=== PATIENT | male | born 1935 | race Caucasian/White ===

== ENCOUNTER 2019-11-08 14:18 | Emergency (ER) | payer MEDICARE, OTHER, SELFPAY ==
[2019-11-08 14:25] VITALS: BP 119/57; PULSE 109; RESP 22; TEMP 37.1; O2SAT 95; BMI 28.8
--- NOTE | 2019-11-08 14:30 | DI.RAD.S_ITS ---
PROCEDURE: XR CHEST 1V INDICATIONS: chest pain TECHNIQUE: One view of the chest was acquired. COMPARISON: None. FINDINGS: Surgical changes and devices: Median sternotomy. Lungs and pleura: Lungs are clear. No pleural effusions or pneumothorax. Mediastinum: Mediastinal contours appear normal. Heart size is normal. Bones and chest wall: No suspicious bony lesions. Overlying soft tissues appear unremarkable. IMPRESSION: No acute process. Dictated by: Daniel Song M.D. on 11/08/2019 at 14:12 Approved by: Daniel Song M.D. on 11/08/2019 at 14:13
[2019-11-08 15:01] LABS: PTT Partial Thromboplastin Tim 40 SECONDS (26.4-36.2)
[2019-11-08 15:04] LABS: INR 2.4 (0.9-1.3); Prothrombin Time 27.5 SECONDS (10.1-12.7)
[2019-11-08 15:07] LABS: Add Manual Diff / Slide Review NO; Basophils Absolute Auto 0 /uL (0-100); Basophils Percent Auto 0.3 % (0-2); Eosinophils Absolute Auto 0 /uL (0-450); Eosinophils Percent Auto 0.3 % (2-4); Hematocrit 43.4 % (41-53); Hemoglobin 14.7 g/dL (13.5-17.5); Lymphocytes Absolute Auto 200 /uL (1100-4500); Lymphocytes Percent Auto 3.6 % (25-40); Mean Corpuscular HGB Conc 33.8 % (30-36); Mean Corpuscular Volume 97.6 fL (80-100); Monocytes Absolute Auto 200 /uL (0-900); Monocytes Percent Auto 4.2 % (3-14); Neutrophils Absolute Auto 5400 /uL (1500-7000); Neutrophils Percent Auto 91.6 % (50-75); Platelet Count 117 X10^3/uL (150-400); Red Blood Cell Count 4.45 X10^6/uL (4.5-5.9); Red Cell Distribution Width 14.3 % (11.6-14.8); White Blood Cell Count 5.9 X10^3/uL (4.5-11.0)
[2019-11-08 15:10] LABS: Alanine Aminotransferase 31 IU/L (<50); Albumin 4.4 g/dL (3.5-5.0); Albumin Globulin Ratio 1.6 (1.0-2.8); Alkaline Phosphatase 62 U/L (38-126); Aspartate Aminotransferase 37 IU/L (17-59); Bilirubin Total 0.7 mg/dL (0.2-1.3); Blood Urea Nitrogen 21 mg/dL (9-20); Calcium 8.7 mg/dL (8.4-10.2); Carbon Dioxide 25 mmol/L (22-32); Chloride 100 mmol/L (98-107); Creatine Kinase 171 U/L (55-170); Estimated Glomerular Filt Rate > 60.0 mL/min (>60); Globulin 2.8 g/dL (1.7-4.1); Glucose 131 mg/dL (80-110); HEMOLYSIS 19 (0-50); Lipase 17 U/L (23-300); Sodium 138 mmol/L (137-145); Total Protein 7.2 g/dL (6.3-8.2)
[2019-11-08 15:22] LABS: Troponin I 0.018 ng/mL (0.01-0.034)
[2019-11-08 15:26] LABS: Creatine Kinase MB 1.72 ng/mL (<2.37)
[2019-11-08 15:30] VITALS: BP 141/67; PULSE 95; RESP 19; O2SAT 95
--- NOTE | 2019-11-08 16:08 | ED_ITS ---
HPI - Arrhythmia/Palpitations General Chief Complaint: Arrhythmia/Palpitations Stated Complaint: HAVING BLOOD PRESSURE ISSUES Time Seen by Provider: 11/08/19 16:08 Source: patient and family Mode of arrival: Ambulatory Limitations: no limitations History of Present Illness HPI narrative: Patient is an 83-year-old male. History of coronary artery disease. Has had a bypass graft and also a valve replaced many years ago. Also has had a distant history of atrial fibrillation. Here for evaluation of an elevated heart rate. Patient states that earlier today he had a sudden urge to have a bowel movement. He states that he went into the bathroom and had an episode of diarrhea. He then had a sudden urge to vomit which he did. At some point soon after that he checked his heart rate on a finger pulse a manner that he has at home and it was reading in the 130s. He was not having any chest pain or shortness of breath or palpitations at the time. All the symptoms seemed to have improved to include any nausea or diarrhea. He came in to ?get checked out ? Related Data Home Medications Medication Instructions Recorded Confirmed colchicine 0.6 mg PO QDAY #0 05/01/17 doxazosin [Cardura] 4 mg PO HS #0 05/01/17 loratadine 10 mg PO QDAY #0 05/01/17 metoprolol succinate 50 mg PO QDAY #0 05/01/17 omeprazole 20 mg PO QDAY #0 05/01/17 potassium citrate 10 meq PO TID #0 05/01/17 probenecid 750 mg PO QDAY #0 05/01/17 simvastatin 40 mg PO HS #0 05/01/17 tramadol 50 mg PO PRN PRN #0 05/01/17 warfarin [Coumadin] 7.5 mg PO HS #0 05/01/17 Allergies Allergy/AdvReac Type Severity Reaction Status Date / Time No Known Allergies Allergy Uncoded 01/15/18 12:15 Review of Systems Constitutional Constitutional: Denies fatigue and Denies frequent falls Cardiovascular Cardiovascular: Denies chest pain, Reports rapid heart rate, Denies edema, Denies palpitations and Denies dyspnea Respiratory Respiratory: Denies cough and Denies dyspnea Gastrointestinal Gastrointestinal: Denies abdominal pain, Reports diarrhea and Reports vomiting Genitourinary Genitourinary: Denies dysuria Musculoskeletal Musculoskeletal: Denies myalgias and Denies arthralgias Integumentary/Breasts Skin/Breast: Denies lesions and Denies rash Neurologic Neurologic: Denies behavioral changes and Denies frequent falls Psychiatric Psychiatric: Denies behavioral changes Endocrine Endocrine: Denies fatigue and Denies palpitations Patient History Medical History Atrial fibrillation (Acute) Coronary artery disease (Acute) Surgical History Hx of CABG (Acute) Social History marital status: lives independently: Yes Exam Initial Vital Signs Initial Vital Signs: Vital Signs Temperature 98.7 F 11/08/19 14:25 Pulse Rate 109 H 11/08/19 14:25 Respiratory Rate 22 11/08/19 14:25 Blood Pressure 119/57 L 11/08/19 14:25 Pulse Oximetry 95 11/08/19 14:25 Const General: cooperative, comfortable, well developed and well groomed Limitations: mental status not altered [facility] Head: normal to inspection and normocephalic Resp Effort & Inspection: normal respiratory effort Auscultation: clear to auscultation bilaterally Cardio Rate: regular rate Rhythm: regular rhythm Pulses: radial pulses present GI Inspection: non-distended Palpation: soft Skin Lesions: no lesions Rashes: no rashes Neuro General: alert, awake and oriented x3 Cognition: normal cognition Speech: speech normal Extrem General: normal to inspection and capillary refill normal Psych Appearance: grossly normal and well kempt Scores GCS Viet coma scale eye opening: Spontaneous Viet coma scale verbal response: Orientated Chamberlain coma scale motor response: Obey commands Viet coma scale total score: 15 Course Orders Ordered: ED Orders 11/08/19 14:30 XR chest 1V Stat EKG-12 Lead Stat 11/08/19 14:42 Complete Blood Count AUTO DIFF Stat Comprehensive Metabolic Panel Stat Lipase Stat Partial Thromboplastin Time Stat Prothrombin Time INR Stat Troponin & CK Cardiac Panel Stat Vital Signs Vital signs: Vital Signs - 8 hr 11/08/19 14:25 11/08/19 15:30 11/08/19 16:30 Temperature 98.7 F 100.3 F H Pulse Rate 109 H 95 H 100 H Respiratory Rate 22 19 18 Blood Pressure 119/57 L Blood Pressure [Right Arm] 141/67 H 141/67 H Pulse Oximetry 95 95 98 MDM - Arrhythmia/Palpitations Lab Data Attestation: I reviewed the patient's lab results. Result diagrams: 11/08/19 14:42 11/08/19 14:42 Labs: Lab Results 11/08/19 11/08/19 11/08/19 Range/Units 14:42 14:42 14:42 WBC 5.9 (4.5-11.0) X10^3/uL RBC 4.45 L (4.5-5.9) X10^6/uL Hgb 14.7 (13.5-17.5) g/dL Hct 43.4 (41-53) % MCV 97.6 (80-100) fL MCH 33.0 (26-34) PG MCHC 33.8 (30-36) % RDW 14.3 (11.6-14.8) % Plt Count 117 L (150-400) X10^3/uL Neut % (Auto) 91.6 H (50-75) % Lymph % (Auto) 3.6 L (25-40) % Mccormick % (Auto) 4.2 (3-14) % Eos % (Auto) 0.3 L (2-4) % Baso % (Auto) 0.3 (0-2) % Neut # (Auto) 5400 (8581-6634) /uL Lymph # (Auto) 200 L (4947-1556) /uL Mccormick # (Auto) 200 (0-900) /uL Eos # (Auto) 0 (0-450) /uL Baso # (Auto) 0 (0-100) /uL PT 27.5 H (10.1-12.7) SECONDS INR 2.4 H (0.9-1.3) APTT 40 H (26.4-36.2) SECONDS Sodium 138 (137-145) mmol/L Potassium 4.0 (3.4-5.1) mmol/L Chloride 100 (98-107) mmol/L Carbon Dioxide 25 (22-32) mmol/L BUN 21 H (9-20) mg/dL Creatinine 1.00 (0.66-1.25) mg/dL Estimated GFR > 60.0 (>60) mL/min BUN/Creatinine Ratio 21.0 (6-22) Glucose 131 H (80-110) mg/dL Calcium 8.7 (8.4-10.2) mg/dL Total Bilirubin 0.7 (0.2-1.3) mg/dL AST 37 (17-59) IU/L ALT 31 (<50) IU/L Alkaline Phosphatase 62 (38-126) U/L Total Creatine Kinase 171 H (55-170) U/L CK-MB (CK-2) 1.72 (<2.37) ng/mL CK-MB (CK-2) Rel Index 1.0 L (1.5-5.0) % Troponin I 0.018 (0.01-0.034) ng/mL Total Protein 7.2 (6.3-8.2) g/dL Albumin 4.4 (3.5-5.0) g/dL Globulin 2.8 (1.7-4.1) g/dL Albumin/Globulin Ratio 1.6 (1.0-2.8) Lipase 17 L (23-300) U/L Imaging Data Chest x-ray: Radiologist's Impresson: [place] [address] XRay Report Signed Patient: Lewis Dowell [facility]#: [id number] : 5Acct:[id number] Age/Sex: 83 / MDate of Service: 11/08/19 Loc: ED Accession Number: [id number] Procedure: XR chest 1V Ordering Provider: Cole Randall D.O. PROCEDURE: XR CHEST 1V INDICATIONS: chest pain TECHNIQUE: One view of the chest was acquired. COMPARISON: None. FINDINGS: Surgical changes and devices: Median sternotomy. Lungs and pleura: Lungs are clear. No pleural effusions or pneumothorax. Mediastinum: Mediastinal contours appear normal. Heart size is normal. Bones and chest wall: No suspicious bony lesions. Overlying soft tissues appe ar unremarkable. IMPRESSION: No acute process. Dictated by: Daniel Song M.D. on 11/08/2019 at 14:12 Approved by: Daniel Song M.D. on 11/08/2019 at 14:13 ECG Data Attestation: I personally reviewed and interpreted this ECG as follows: Prior ECG tracings: not available for review Interpretation: Sinus tachycardia Ventricular rate of 102 As needed oval 100 milliseconds Normal axis Normal QRS Normal QTC No ST T wave changes MDM Narrative Medical decision making narrative: Patient is nontoxic appearing. Is in sinus rhythm with heart rate less than 100 at the time of my evaluation on the monitor. He has no symptoms currently. No fevers. Exam is at baseline. Low suspicion for ACS. Informed him that his elevated heart rate could be any number factors to include a episode of atrial fibrillation versus tachycardia related to the diarrhea and vomiting he was having at the time versus is potentially a machine not reading his heart rate correctly. Decision was made to hold on any further workup for now. He will call his senior technical support engineer tomorrow. He was given strict return precautions. Both he and his who is at bedside expressed understanding and agreement with plan. Discharge Plan Departure Patient Disposition: Home Clinical Impression: Palpitations Discharge Date/Time: 11/08/19 16:39 Instructions: Arrhythmias Activity Restrictions/Additional Instructions: Continue all of your medications as directed. Recommend that you talk with your senior technical support engineer and also your primary doctor tomorrow for follow-up. Return to the emergency department for any new or worsening symptoms Prescriptions: No Action doxazosin [Cardura] 4 MG tablet 4 mg PO HS Qty: 0 RF: 0 omeprazole 20 MG capsule,delayed release(DR/EC) 20 mg PO QDAY Qty: 0 RF: 0 simvastatin 40 MG tablet 40 mg PO HS Qty: 0 RF: 0 potassium citrate 10 MEQ tablet extended release 10 meq PO TID Qty: 0 RF: 0 loratadine 10 MG tablet 10 mg PO QDAY Qty: 0 RF: 0 metoprolol succinate 50 MG tablet extended release 24 hr 50 mg PO QDAY Qty: 0 RF: 0 colchicine 0.6 MG tablet 0.6 mg PO QDAY Qty: 0 RF: 0 probenecid 500 MG tablet 750 mg PO QDAY Qty: 0 RF: 0 warfarin [Coumadin] 7.5 MG tablet 7.5 mg PO HS Qty: 0 RF: 0 tramadol 50 MG tablet 50 mg PO PRN PRNQty: 0 RF: 0 Referrals: Mildred Fernandez MD [Primary Care Provider] -
[2019-11-08 16:30] VITALS: BP 141/67; PULSE 100; RESP 18; TEMP 37.9; O2SAT 98
== END 2019-11-08 16:39 | disposition home or self-care (01) ==
PROVIDERS: Emergency Provider Emergency Medicine; Family Provider Internal Medicine; PCP Internal Medicine
DX: R00.2 Palpitations (principal); R00.0 Tachycardia, unspecified; R07.9 Chest pain, unspecified; I48.91 Unspecified atrial fibrillation; Z79.01 Long term (current) use of anticoagulants
CPT/HCPCS: 36415; 71045; 80053; 82550; 82553; 83690; 84484; 85025; 85610; 85730; 93005; 99284; 99285

== ENCOUNTER → 2022-11-23 11:45 | Outpatient (CLI) | payer MEDICARE, OTHER, SELFPAY ==
--- NOTE | 2022-11-23 | DI.MRI.S_ITS ---
PROCEDURE: MR HEAD/BRAIN WO CON INDICATIONS: memory loss TECHNIQUE: Non-contrast axial T1 spin echo, axial T2 fast spin echo, sagittal and axial FLAIR, coronal T2 fast spin echo, axial gradient echo, axial diffusion and ADC through the brain. COMPARISON: None. FINDINGS: Image quality: Excellent. CSF spaces: Ventricles appear symmetric in size and shape. Basal cisterns are patent. No extra-axial fluid collections. Brain: No intracranial bleeds or mass effects. There is mild overall cerebral volume loss for age. There are mild periventricular and deep white matter chronic small vessel ischemic changes. Brainstem appears normal. Diffusion-weighted images show no acute ischemic insults. No chronic ischemic insults. Normal intravascular flow voids are present. A small dilated perivascular space is incidentally noted at the lentiform nucleus, left hemispheric deep white matter. Skull and face: Calvarial bone marrow is normal in signal. Orbits are normal. Sinuses: Sinuses and mastoids are clear. IMPRESSION: Relatively mild brain parenchymal atrophy and microvascular atherosclerotic changes for age. A definite source of memory loss is not identified otherwise. Dictated by: Blaze Adames M.D. on 11/23/2022 at 13:50 Approved by: Blaze Adames M.D. on 11/23/2022 at 13:53
== END ==
PROVIDERS: Family Provider Internal Medicine; PCP Internal Medicine; Referring Provider Psychiatry & Neurology Neurology; Visit Provider Psychiatry & Neurology Neurology
DX: R41.3 Other amnesia (principal)
CPT/HCPCS: 70551

== ENCOUNTER 2023-03-26 19:11 | Emergency (ER) | payer MEDICARE, OTHER, SELFPAY ==
[2023-03-26 19:33] VITALS: PULSE 63; RESP 22; TEMP 36.7; O2SAT 94; BMI 25.8
[2023-03-26 20:00] LABS: Add Manual Diff / Slide Review NO; Basophils Absolute Auto 0 /uL (0-100); Basophils Percent Auto 0.6 % (0-2); Eosinophils Absolute Auto 200 /uL (0-450); Eosinophils Percent Auto 2.1 % (2-4); Hematocrit 40.7 % (41-53); Hemoglobin 13.9 g/dL (13.5-17.5); Lymphocytes Absolute Auto 1600 /uL (1100-4500); Lymphocytes Percent Auto 21.8 % (25-40); Mean Corpuscular HGB Conc 34.1 % (30-36); Mean Corpuscular Hemoglobin 33.7 PG (26-34); Mean Corpuscular Volume 98.7 fL (80-100); Monocytes Absolute Auto 700 /uL (0-900); Monocytes Percent Auto 9.8 % (3-14); Neutrophils Absolute Auto 4800 /uL (1500-7000); Neutrophils Percent Auto 65.7 % (50-75); Platelet Count 144 X10^3/uL (150-400); Red Blood Cell Count 4.12 X10^6/uL (4.5-5.9); Red Cell Distribution Width 13.8 % (11.6-14.8); White Blood Cell Count 7.3 X10^3/uL (4.5-11.0)
[2023-03-26 20:13] LABS: Alanine Aminotransferase 54 IU/L (<50); Albumin 4.5 g/dL (3.5-5.0); Albumin Globulin Ratio 1.5 (1.0-2.8); Alkaline Phosphatase 125 U/L (38-126); Aspartate Aminotransferase 46 IU/L (17-59); BUN Creatinine Ratio 23.4 (6-22); Bilirubin Total 0.4 mg/dL (0.2-1.3); Blood Urea Nitrogen 22 mg/dL (9-20); Calcium 9.1 mg/dL (8.4-10.2); Carbon Dioxide 28 mmol/L (22-32); Chloride 104 mmol/L (98-107); Estimated Glomerular Filt Rate > 60 mL/min (>60); Glucose 115 mg/dL (80-110); HEMOLYSIS 17 (0-50); Potassium 4.1 mmol/L (3.4-5.1); Sodium 139 mmol/L (137-145); Total Protein 7.5 g/dL (6.3-8.2)
--- NOTE | 2023-03-26 21:08 | PC.NURSE ---
Pt with witnessed fall by bystanders and spouse in WR. Pt was returning to w/c from using bathroom when w/c slipped from underneath him. Pt found by this RN and another RN in a sitting position. Pt denied hitting his head. Pt denied any other new injuries. Pt able to stand with assist and back to w/c. Pt placed back in WR in w/c in locked position.
[2023-03-26 22:00] LABS: Bacteria Urine Few (2-10); Calcium Oxalate Crystals Urine Few; Culture Indicated Urine Specimen Cultured; RBC Urine 10-30/HPF (0-5/HPF); Squamous Epithelial Cell Urine 10-30 /HPF (0-5/HPF); WBC Urine 10-30/HPF (0-5/HPF)
[2023-03-26 22:26] VITALS: PULSE 68; O2SAT 96
[2023-03-26 22:27] VITALS: BP 133/65; PULSE 69; O2SAT 97
[2023-03-26 22:30] VITALS: BP 140/71; PULSE 64; O2SAT 98
--- NOTE | 2023-03-26 22:39 | DI.CT.S_ITS ---
PROCEDURE: CT KIDNEY URETER BLADDER (KUB) INDICATIONS: L sided flank pain eval for stone TECHNIQUE: Axial sections were acquired from the lung bases to the pubic symphysis. Coronal and sagittal reformats were performed. For radiation dose reduction, the following was used: automated exposure control, adjustment of mA and/or kV according to patient size. COMPARISON: [facility], CT, KIDNEY/ URETER/BLADDER, 03/09/2010, 10:52. FINDINGS: Image quality: Excellent. Lung bases: There is mild atelectasis and scarring in the lung bases. Heart: Heart is normal in size. There is a small hiatal hernia. URINARY: Right Kidney and Ureter: There is a 0.2 cm nonobstructing right renal stone. No hydronephrosis. No hydroureter. Left Kidney and Ureter: There is a large left staghorn calculus which appears increased in size from the prior study. There is demonstrates attenuation values of approximately 8830-3972 Hounsfield units. Bladder: Normal wall thickness. No stones. ABDOMEN: Liver: Noncontrast evaluation of the liver demonstrates no discrete mass. There are few scattered punctate foci of calcifications in the liver consistent with sequelae of old granulomas disease. Gallbladder: Within normal limits without calcified gallstones. Biliary ducts: No biliary ductal dilatation. Pancreas: Unremarkable. Spleen: There are punctate calcifications within the spleen also compatible with sequelae of old granulomatous disease. Adrenal Glands: No adrenal nodules. Stomach and Bowel: Stomach, small bowel loops, and colon are normal in caliber and wall thickness. Peritoneum: No abnormal intraperitoneal fluid. No free air. Ventral Wall: No hernia. Abdominal Nodes: No retroperitoneal or mesenteric adenopathy by size criteria. Vessels: Aorta and inferior vena cava are normal in size. PELVIS: Pelvic Organs: Unremarkable. Pelvic Nodes: No enlarged lymph nodes. Miscellaneous: No inguinal hernias identified. Bones: Visualized osseous structures demonstrate no suspicious focal lesions. IMPRESSION: 1. Large staghorn calculus in the left renal collecting system appears increased in size from the prior study. There is associated distention of the renal collecting system without definite left hydronephrosis. 2. Additional bilateral nephrolithiasis noted. 3. Cholelithiasis without CT evidence of cholecystitis. Dictated by: Job Myers M.D. on 03/26/2023 at 23:59 Approved by: Job Myers M.D. on 03/27/2023 at 0:05
--- NOTE | 2023-03-26 22:39 | ED.GENADULT ---
HPI - General Adult General Chief complaint: Urogenital-Male Stated complaint: thinks is passing a kidney stone Time Seen by Provider: 03/26/23 22:20 Source: patient and family Mode of arrival: Wheelchair History of Present Illness HPI narrative: Patient is an 79-year-old male. Does have baseline memory issues. Is here with his for evaluation left-sided back and abdominal pain. He does have history of kidney stones and ureteral stones. Patient's states that last evening he started to complain of abdominal discomfort. It continued throughout the day today. He did take a nap today when he woke up he was complaining of more discomfort. Decided to bring him in for evaluation. He is not had any specific urinary complaints. No fevers. No vomiting. Much of HPI is provided by patient's . Related Data Home Medications Medication Instructions Recorded Confirmed colchicine 0.6 mg tablet 0.6 mg PO QDAY ##0 05/01/17 doxazosin 4 mg tablet (Cardura) 4 mg PO HS ##0 05/01/17 loratadine 10 mg tablet 10 mg PO QDAY ##0 05/01/17 metoprolol succinate 50 mg 50 mg PO QDAY ##0 05/01/17 tablet,extended release 24 hr omeprazole 20 mg capsule,delayed 20 mg PO QDAY ##0 05/01/17 release potassium citrate 10 mEq (1,080 10 meq PO TID ##0 05/01/17 mg) tablet,extended release probenecid 500 mg tablet 750 mg PO QDAY ##0 05/01/17 simvastatin 40 mg tablet 40 mg PO HS ##0 05/01/17 tramadol 50 mg tablet 50 mg PO PRN PRN ##0 05/01/17 warfarin 7.5 mg tablet (Coumadin) 7.5 mg PO HS ##0 05/01/17 Previous Rx's Medication Instructions Recorded tramadol 50 mg tablet 50 mg PO BID PRN pain #10 tabs 03/27/23 Allergies Allergy/AdvReac Type Severity Reaction Status Date / Time No Known Drug Allergies Allergy Verified 03/26/23 21:52 Review of Systems Constitutional Constitutional: Reports system reviewed and no additional complaints, except as documented Gastrointestinal Gastrointestinal: Reports system reviewed and no additional complaints, except as documented Genitourinary Genitourinary: Reports system reviewed and no additional complaints, except as documented Musculoskeletal Musculoskeletal: Reports system reviewed and no additional complaints, except as documented Patient History Medical History Atrial fibrillation Coronary artery disease Surgical History Hx of CABG Social History marital status: lives independently: Yes Smoking Status: Former smoker Smoking Status: Former smoker Substance Use Type: does not use Exam Initial Vital Signs Initial Vital Signs: Vital Signs Temperature 98.0 F 03/26/23 19:33 Pulse Rate 63 03/26/23 19:33 Respiratory Rate 22 03/26/23 19:33 Pulse Oximetry 94 03/26/23 19:33 Oxygen Delivery Method Room Air 03/26/23 19:33 Resp Auscultation: clear to auscultation bilaterally Cardio Rate: regular rate GI Inspection: normal to inspection Palpation: soft and No tender Back/Spine/Pelvis Back: No CVA tenderness Course Orders Ordered: ED Orders 03/26/23 19:52 CBC Auto Diff [Complete Blood Count AUTO DIFF] Stat Comprehensive Metabolic Panel Stat 03/26/23 21:10 Urine Culture Stat Urine Microscopic Stat 03/26/23 22:39 CT kidney ureter bladder (KUB) Stat Discontinued Medications Tramadol HCl (Tramadol 50 Mg Tablet) 50 mg PO NOW ONE Stop: 03/27/23 00:16 Last Admin: 03/27/23 00:21 Dose: 50 mg Documented By: BS Vital Signs Vital signs: Vital Signs - 8 hr 03/26/23 22:26 03/26/23 22:27 03/26/23 22:27 Pulse Rate 68 69 Blood Pressure 133/65 Pulse Oximetry 96 97 Oxygen Delivery Method Room Air 03/26/23 22:30 03/26/23 22:30 03/26/23 23:00 Pulse Rate 64 65 Blood Pressure 140/71 Pulse Oximetry 98 96 Oxygen Delivery Method 03/26/23 23:30 03/27/23 00:00 03/27/23 00:20 Pulse Rate 66 69 Blood Pressure 129/66 Pulse Oximetry 97 94 Oxygen Delivery Method 03/27/23 00:20 Pulse Rate 68 Blood Pressure Pulse Oximetry 96 Oxygen Delivery Method Medical Decision Making Lab Data Lab results reviewed: Yes I reviewed the patient's lab results. 03/26/23 19:52 03/26/23 19:52 Labs: Lab Results 03/26/23 03/26/23 03/26/23 Range/Units 19:52 19:52 21:10 WBC 7.3 (4.5-11.0) X10^3/uL RBC 4.12 L (4.5-5.9) X10^6/uL Hgb 13.9 (13.5-17.5) g/dL Hct 40.7 L (41-53) % MCV 98.7 (80-100) fL MCH 33.7 (26-34) PG MCHC 34.1 (30-36) % RDW 13.8 (11.6-14.8) % Plt Count 144 L (150-400) X10^3/uL Neut % (Auto) 65.7 (50-75) % Lymph % (Auto) 21.8 L (25-40) % [place] % (Auto) 9.8 (3-14) % Eos % (Auto) 2.1 (2-4) % Baso % (Auto) 0.6 (0-2) % Neut # (Auto) 4800 (2006-4333) /uL Lymph # (Auto) 1600 (6626-0357) /uL [place] # (Auto) 700 (0-900) /uL Eos # (Auto) 200 (0-450) /uL Baso # (Auto) 0 (0-100) /uL Sodium 139 (137-145) mmol/L Potassium 4.1 (3.4-5.1) mmol/L Chloride 104 (98-107) mmol/L Carbon Dioxide 28 (22-32) mmol/L BUN 22 H (9-20) mg/dL Creatinine 0.94 (0.66-1.25) mg/dL Estimated GFR > 60 (>60) mL/min BUN/Creatinine Ratio 23.4 H (6-22) Glucose 115 H (80-110) mg/dL Calcium 9.1 (8.4-10.2) mg/dL Total Bilirubin 0.4 (0.2-1.3) mg/dL AST 46 (17-59) IU/L ALT 54 H (<50) IU/L Alkaline Phosphatase 125 (38-126) U/L Total Protein 7.5 (6.3-8.2) g/dL Albumin 4.5 (3.5-5.0) g/dL Globulin 3.0 (1.7-4.1) g/dL Albumin/Globulin Ratio 1.5 (1.0-2.8) Urine RBC 10-30/hpf H (0-5/HPF) Urine WBC 10-30/hpf H (0-5/HPF) Ur Squamous Epith Cells 10-30 /hpf H (0-5/HPF) Calcium Oxalate Crystal Few H Urine Bacteria Few (2-10) H (None) Ur Culture Indicated? Specimen cultured Urine Dip Bedside Urine Glucose Negative Bedside Urine Bilirubin - Negative Bedside Urine Ketone - Negative Urine Specific [place] 1.015 Bedside Urine Occult Blood +++ Bedside Urine pH 6.0 Bedside Urine Protein +/- 15 Bedside Urine Urobilinogen - Negative Bedside Urine Nitrite - Negative Bedside Urine Leukocytes ++ 125 Esterase Point of care testing: Urine Dip Bedside Urine Glucose Negative Bedside Urine Bilirubin - Negative Bedside Urine Ketone - Negative Urine Specific [place] 1.015 Bedside Urine Occult Blood +++ Bedside Urine pH 6.0 Bedside Urine Protein +/- 15 Bedside Urine Urobilinogen - Negative Bedside Urine Nitrite - Negative Bedside Urine Leukocytes ++ [address] scan - abdomen/pelvis: Radiologist's Impression: PROCEDURE:? CT KIDNEY URETER BLADDER (KUB) ? INDICATIONS:? L sided flank pain eval for stone ? TECHNIQUE:? Axial sections were acquired from the lung bases to the pubic symphysis.? Coronal and sagittal reformats were performed.? For radiation dose reduction, the following was used: ?automated exposure control, adjustment of mA and/or kV according to patient size.? ? COMPARISON:? [facility], CT, KIDNEY/ URETER/BLADDER, 03/09/2010, 10:52. ? FINDINGS:? Image quality:? Excellent.? ? Lung bases:? There is mild atelectasis and scarring in the lung bases. Heart:? Heart is normal in size.? There is a small hiatal hernia. ? URINARY: Right Kidney and Ureter: ? There is a 0.2 cm nonobstructing right renal stone.? No hydronephrosis.? No hydroureter.? ? Left Kidney and Ureter: ? There is a large left staghorn calculus which appears increased in size from the prior study.? There is demonstrates attenuation values of approximately 9501-3707 Hounsfield units.? ? Bladder:? Normal wall thickness. No stones. ? ? ? ABDOMEN: Liver:? Noncontrast evaluation of the liver demonstrates no discrete? mass.? There are few scattered punctate foci of calcifications in the liver consistent with sequelae of old granulomas disease. Gallbladder:? Within normal limits without calcified gallstones.? ? Biliary ducts:? No biliary ductal dilatation.? ? Pancreas:? Unremarkable.? ? Spleen:? There are punctate calcifications within the spleen also compatible with sequelae of old granulomatous disease. Adrenal Glands:? No adrenal nodules.? ? ? Stomach and Bowel:? Stomach, small bowel loops, and colon are normal in caliber and wall thickness.? Peritoneum:? No abnormal intraperitoneal fluid.? No free air.? ? Ventral Wall: ? No hernia.? Abdominal Nodes:? No retroperitoneal or mesenteric adenopathy by size criteria.? Vessels:? Aorta and inferior vena cava are normal in size.? ? PELVIS: Pelvic Organs:? Unremarkable.? ? Pelvic Nodes: No enlarged lymph nodes.? Miscellaneous: No inguinal hernias identified. ? ? ? Bones:? Visualized osseous structures demonstrate no suspicious focal lesions. IMPRESSION:? ? 1. Large staghorn calculus in the left renal collecting system appears increased in size from the prior study.? There is associated distention of the renal collecting system without definite left hydronephrosis. ? 2. Additional bilateral nephrolithiasis noted. ? 3. Cholelithiasis without CT evidence of cholecystitis. [facility] Narrative Medical decision making narrative: Patient does have quite a bit of blood in his urine. He does have white cells but also quite a bit of epithelial cells. He is not have any specific urinary tract infection like symptoms we will wait for the culture to result before starting any antibiotics. He does have a large left-sided staghorn calculus. His states that they know about this however according to the CT report he does seem somewhat larger than on prior scans. I did advise that they may contact with a urologist in the were given information for this. This potentially could be the source of the patient's pain today. There was no other acute findings found on the CT scan. No indication for admission to the hospital. He was given return precautions. Both him and his expressed understanding and agreement. Discharge Plan Departure Patient Disposition: Home Clinical Impression: Renal calculus, left Instructions: DI for Kidney Stones Activity Restrictions/Additional Instructions: Continue to take all of your medications as directed. I recommend that you contact the Urology Department at the number provided below for a follow-up. Return to the emergency department for new or worsening symptoms. Prescriptions: New tramadol 50 mg tablet 50 mg PO BID PRN (Reason: pain) Qty: 10 0RF No Action doxazosin [Cardura] 4 MG tablet 4 mg PO HS Qty: 0 omeprazole 20 MG capsule,delayed release(DR/EC) 20 mg PO QDAY Qty: 0 simvastatin 40 MG tablet 40 mg PO HS Qty: 0 potassium citrate 10 MEQ tablet extended release 10 meq PO TID Qty: 0 loratadine 10 MG tablet 10 mg PO QDAY Qty: 0 metoprolol succinate 50 MG tablet extended release 24 hr 50 mg PO QDAY Qty: 0 colchicine 0.6 MG tablet 0.6 mg PO QDAY Qty: 0 probenecid 500 MG tablet 750 mg PO QDAY Qty: 0 warfarin [Coumadin] 7.5 MG tablet 7.5 mg PO HS Qty: 0 tramadol 50 MG tablet 50 mg PO PRN PRNQty: 0 Referrals: Mildred Fernandez MD [Primary Care Provider] - Sree Moe MD [Physician] - Stand Alone Forms: Patient Portal/API
[2023-03-26 23:00] VITALS: PULSE 65; O2SAT 96
[2023-03-26 23:30] VITALS: PULSE 66; O2SAT 97
[2023-03-27] VITALS: PULSE 69; O2SAT 94
[2023-03-27 00:20] VITALS: BP 129/66; PULSE 68; O2SAT 96
[2023-03-27] MEDS: TRAMADOL 50 MG TABLET PO (00:21)
== END 2023-03-27 00:27 | disposition home or self-care (01) ==
PROVIDERS: Emergency Provider Emergency Medicine; Family Provider Internal Medicine; PCP Internal Medicine
DX: N20.0 Calculus of kidney (principal)
CPT/HCPCS: 74176; 80053; 81003; 81015; 85025; 87086; 99283; 99284